=== PATIENT | male | born 1985 ===

== ENCOUNTER 2021-03-21 10:09 | Outpatient (CLI) | payer OTHER ==
[~2021-03-21] VITALS: Ht 180.3 cm; Wt 160.6 kg
[2021-03-21] MEDS ORDERED: PROAIR HFA0.09 MG/AC IH (11:26)
[2021-03-21] MEDS ORDERED: NEURONTIN600 MG/TAB PO (11:27)
[2021-03-21] MEDS ORDERED: PROZAC40 MG PO (11:27)
[2021-03-21] MEDS ORDERED: ZESTRIL 20MG TA20 MG PO (11:28)
[2021-03-21] MEDS ORDERED: GLUCOPHAGE XR500 M1 PO (11:28)
[2021-03-21] MEDS ORDERED: ZYPREXA 5MG5 MG PO (11:29)
[2021-03-21] MEDS ORDERED: CRESTOR 10MG10 MG PO (11:30)
[2021-03-21 12:10] VITALS: BP 148/85; PULSE 62; TEMP 97.9
== END 2021-03-21 12:12 | disposition home or self-care (01) ==
LOC: EUO 10:09
DX: Z45.2 Encounter for adjustment and management of vascular access device (principal); E11.69 Type 2 diabetes mellitus with other specified complication; M86.9 Osteomyelitis, unspecified
CPT/HCPCS: C1751